=== PATIENT | female | born 1970 | race African-American/Black ===

== ENCOUNTER → 2020-12-13 12:16 | Outpatient (CLI) | payer MEDICARE, OTHER, SELFPAY ==
--- NOTE | ~2020-12-13 | CT_ITS ---
EXAMINATION: CT ankle RT wo con DATE: 12/13/2020 12:48 INDICATION: Right foot and ankle pain TECHNIQUE: Computed tomography (CT) of the right ankle was performed without intravenous contrast. Sa gittal and coronal reconstructions were constructed. Automated exposure control and iterative reconst ruction technique were employed. The dose-length product was 212 mGy-cm. COMPARISON: Radiographs dated 11/29/2020 FINDINGS: Right ankle arthrodesis with anterior plate and screw fixation which is in essentially anatomic. Ther e is small amount of heterotopic ossification along the anterior talofibular and anterior inferior ti biofibular ligaments. Mild osteoarthritis of the subtalar joint 8 mm degenerative subchondral cyst al cj the talar side of the posterior facet. Additional mild osteoarthritis at the second tarsal metata rsal joint with tiny degenerative subchondral cyst at the base of the second metatarsal. No evident j oint effusions or other abnormal fluid collections. Soft tissues including intrinsic musculature of t he foot are unremarkable. IMPRESSION: 1. Instrumented right ankle arthrodesis in essentially anatomic alignment. 2. Mild osteoarthritis with mild degenerative subchondral cystic change at the second tarsometatarsal and subtalar joints. Reviewed, dictated and finalized at location A.
== END ==
PROVIDERS: Visit Provider Orthopaedic Surgery
DX: M19.071 Primary osteoarthritis, right ankle and foot (principal)
CPT/HCPCS: 73700